=== PATIENT | female | born 1990 | race African-American/Black ===

== ENCOUNTER 2017-01-04 19:40 | Emergency (ER) | payer OTHER | END 2017-01-04 20:18 | disposition left against medical advice (07) | LOC: UCEAST 19:40 | DX: R05 Cough (principal); Z53.21 Procedure and treatment not carried out due to patient leaving prior to being seen by health care provider ==

== ENCOUNTER 2017-09-06 20:15 | Emergency (ER) | payer OTHER ==
[2017-09-06 20:24] VITALS: BP 118/71
--- NOTE | 2017-09-06 20:40 | UC ---
Throat Pain/Nasal Valentin HPI - HPI Summary HPI Summary: Pt presents with cough and ST. She tells me that the cough is nonproductive and started about a month ago. Over the last few days she has developed a ST, sinus congestion, and sinus headache. Has not been taking anything OTC. Denies fever, chills, chest pain, SOB, abdominal pain, N/V/D/C - History of Current Complaint Chief Complaint: UCRespiratory Stated Complaint: COUGH Time Seen by Provider: 09/06/17 20:37 Hx Obtained From: Patient Hx Last Menstrual Period: 1 WEEK AGO Onset/Duration: Gradual Onset Severity: Mild Cough: Nonproductive - Allergies/Home Medications Allergies/Adverse Reactions: Allergies Allergy/AdvReac Type Severity Reaction Status Date / Time Penicillins Allergy Severe Anaphylatic Verified 09/06/17 20:24 Shock Shellfish Allergy Allergy Severe Anaphylatic Verified 09/06/17 20:24 Shock Iodine Allergy Unknown Unknown Verified 09/06/17 20:24 Reaction Details Iodide Allergy Unknown Verified 09/06/17 20:24 Reaction Details PMH/Surg Hx/FS Hx/Imm Hx Previously Healthy: Yes - Surgical History Surgical History: None - Family History Known Family History: Positive: None - Social History Occupation: Employed Full-time Lives: With Family Alcohol Use: Occasionally Substance Use Type: None Smoking Status (MU): Never Smoked Tobacco Have You Smoked in the Last Year: No - Immunization History Most Recent Tetanus Shot: unknown Review of Systems Constitutional: Negative Skin: Negative Eyes: Negative ENT: Sore Throat, Nasal Discharge, Sinus Congestion, Sinus Pain/Tenderness Respiratory: Cough Cardiovascular: Negative Gastrointestinal: Negative Neurological: Headache All Other Systems Reviewed And Are Negative: Yes Physical Exam Triage Information Reviewed: Yes Appearance: Well-Appearing, Well-Nourished Vital Signs: Initial Vital Signs Temp 97.9 F 09/06/17 20:20 Pulse 94 09/06/17 20:20 Resp 18 09/06/17 20:20 BP 118/71 09/06/17 20:20 Pulse Ox 100 09/06/17 20:20 Vital Signs Reviewed: Yes Eyes: Positive: Conjunctiva Clear. Negative: Conjunctiva Inflamed, Discharge ENT: Positive: Hearing grossly normal, Pharynx normal, Nasal congestion, Nasal drainage, TMs normal, Sinus tenderness, Uvula midline. Negative: Pharyngeal erythema, TM bulging, TM dull, TM red, Tonsillar swelling, Tonsillar exudate, Muffled voice, Hoarse voice Neck: Positive: Supple, Nontender, No Lymphadenopathy Respiratory: Positive: Chest non-tender, Lungs clear, Normal breath sounds, No respiratory distress, No accessory muscle use Cardiovascular: Positive: RRR, No Murmur, Pulses Normal Neurological: Positive: Alert. Negative: Fatigued Psychological: Positive: Age Appropriate Behavior Skin: Negative: rashes Throat Pain/Nasal Course/Dx - Course Course Of Treatment: POC strep is negative. Rx for azithromycin for sinus symptoms and tessalon for cough. She tells me that she has an albuterol inhaler at home that she has not been using - I advised her to use this 1-2 puffs q6hrs prn SOB/wheezing. - Differential Dx/Diagnosis Differential Diagnosis/HQI/PQRI: Influenza, Mononucleosis, Pharyngitis, Sinusitis, Tonsillitis, URI Provider Diagnoses: Sinusitis. Bronchitis. Pharyngitis Discharge - Discharge Plan Condition: Stable Disposition: HOME Prescriptions: Azithromycin 200/5 SUSP(NF) [Zithromax 200 mg/5 ml SUSP(NF)] 400 mg PO .NOW, THEN 200MG ED #1 btl Benzonatate CAP* [Tessalon 100 MG CAP*] 100 mg PO TID PRN #30 cap PRN Reason: Cough Patient Education Materials: Sinusitis (ED), Acute Bronchitis (ED) Referrals: Glenn Mccartney MD [Primary Care Provider] - Additional Instructions: If you develop a fever, SOB, chest pain, new or worsening symptoms - please call your PCP or go to the ED.
== END 2017-09-06 21:01 | disposition home or self-care (01) ==
LOC: UCEAST 20:15
DX: J32.9 Chronic sinusitis, unspecified (principal); J40 Bronchitis, not specified as acute or chronic; J02.9 Acute pharyngitis, unspecified; Z72.89 Other problems related to lifestyle
CPT/HCPCS: 87651; 99212; G0463

== ENCOUNTER 2017-10-22 16:58 | Emergency (ER) | payer OTHER | END 2017-10-22 21:08 | disposition left against medical advice (07) | LOC: UCEAST 16:58 | DX: R09.89 Other specified symptoms and signs involving the circulatory and respiratory systems (principal); Z53.21 Procedure and treatment not carried out due to patient leaving prior to being seen by health care provider ==

== ENCOUNTER 2017-10-28 14:19 | Emergency (ER) | payer SELFPAY ==
[2017-10-28 16:14] VITALS: BP 124/94
--- NOTE | 2017-10-28 16:54 | UC ---
Respiratory Complaint HPI - History of Current Complaint Chief Complaint: UCRespiratory Stated Complaint: COUGH,HEADACHE Time Seen by Provider: 10/28/17 16:52 Hx Last Menstrual Period: Oct 01, 2017 Pain Intensity: 9 - Allergies/Home Medications Allergies/Adverse Reactions: Allergies Allergy/AdvReac Type Severity Reaction Status Date / Time MS Shellfish Allergy Allergy Severe Anaphylatic Verified 10/28/17 16:15 [Shellfish Allergy] Shock MS Iodine [Iodine] Allergy Unknown Unknown Verified 10/28/17 16:15 Reaction Details MS Iodide [Iodide] Allergy Unknown Verified 10/28/17 16:15 Reaction Details Penicillins Allergy Anaphylatic Verified 10/28/17 16:15 Shock Home Medications: Home Medications NK [No Home Medications Reported] 10/28/17 [History Confirmed 10/28/17] PMH/Surg Hx/FS Hx/Imm Hx - Surgical History Surgical History: None - Family History Known Family History: Positive: None - Social History Alcohol Use: Occasionally Substance Use Type: None Smoking Status (MU): Never Smoked Tobacco Have You Smoked in the Last Year: No - Immunization History Most Recent Tetanus Shot: unknown Physical Exam Vital Signs: Initial Vital Signs Temp 98.0 F 10/28/17 16:10 Pulse 83 10/28/17 16:10 Resp 12 10/28/17 16:10 BP 124/94 10/28/17 16:10 Pulse Ox 100 10/28/17 16:10 UC Diagnostic Evaluation - Laboratory O2 Sat by Pulse Oximetry: 100 Discharge - Discharge Plan Referrals: Glenn Mccartney MD [Primary Care Provider] -
== END 2017-10-28 18:27 | disposition home or self-care (01) ==
LOC: UCEAST 14:19
DX: R05 Cough (principal); R51 Headache
CPT/HCPCS: 86615; 87502; 87798; 99212; G0463

== ENCOUNTER 2017-11-14 15:08 | Emergency (ER) | payer SELFPAY ==
[2017-11-14] MEDS ORDERED: Albuterol/Ipratropium NEB.SOL* Albuterol 2.5 MG/Ipratropium 0.5 MG 3 ML INH ONE (15:50)
[2017-11-14 15:58] VITALS: BP 121/84
--- NOTE | 2017-11-14 16:19 | RAD ---
HISTORY: Bilateral neck pain COMPARISONS: None TECHNIQUE: Multiple contiguous axial CT scans were obtained of the neck without intravenous contrast, with coronal and sagittal multiplanar reformations. FINDINGS: The study is limited by the lack of intravenous contrast. This limits evaluation of the solid organs and vasculature. BRAIN AND ORBITS: The visualized brain and orbits are normal. PARANASAL SINUSES: The visualized paranasal sinuses are clear. SALIVARY GLANDS: The parotid glands, submandibular glands, sublingual glands are normal. NASAL CAVITY/NASOPHARYNX: The nasal cavity and nasopharynx are normal. ORAL CAVITY/OROPHARYNX: The oral cavity is obscured by streak artifact from dental amalgam. The visualized oral cavity and oropharynx are unremarkable. LARYNGEAL APPARATUS/HYPOPHARYNX: The laryngeal apparatus and hypopharynx are normal. UPPER AIRWAY/UPPER ESOPHAGUS: The visualized upper airway and esophagus are normal. LUNG APICES: The lung apices are clear. THYROID GLAND: The thyroid gland is normal. LYMPH NODES: There is no lymphadenopathy by size criteria. VASCULATURE: The vasculature is unremarkable. BONES AND SOFT TISSUES: There is straightening of the cervical lordosis. OTHER: None. IMPRESSION: UNREMARKABLE NONCONTRAST CT OF THE NECK. NO ACUTE PATHOLOGY.
--- NOTE | 2017-11-14 17:03 | RAD ---
Indication: Cough, shortness of breath. 2 views of the chest including dual energy PA views demonstrates no mediastinal shift. Heart is of normal size and configuration. Lung shahid appear clear. IMPRESSION: No active cardiopulmonary disease is noted.
--- NOTE | 2017-11-14 19:01 | UC ---
Arslan Madrigal Nilda, scribed for Gilberto Mcgowan MD on 11/14/17 at 1557 . Respiratory Complaint HPI - HPI Summary HPI Summary: This patient is a 27 year old F presenting to [facility] with a chief complaint of severe constant nonproductive cough for the past 4 months. Pt states, "It feels like someone is stepping on my chest." Symptoms aggravated and alleviated by nothing including inhaler. Patient reports anterior neck pain secondary to coughing, SOB, rhinorrhea, wheezing, and vomiting. She denies post nasal drip, edema, bilat calf pain, and foreign body sensation in throat. She notes she has been seen multiple times at the hospital and clinics with no resolution. PMHx includes asthma. No PMHx GERD and blood clots. - History of Current Complaint Stated Complaint: URI Time Seen by Provider: 11/14/17 15:39 Hx Obtained From: Patient Hx Last Menstrual Period: Oct 01, 2017 Onset/Duration: Sudden Onset, Lasting Weeks, Still Present Timing: Constant Severity Currently: Severe Pain Scale Used: 0-10 Numeric Character: Cough: Nonproductive Aggravating Factors: Nothing Alleviating Factors: Nothing Associated Signs And Symptoms: Positive: Dyspnea, Wheezing. Negative: Calf Pain , Calf Swelling - Allergies/Home Medications Allergies/Adverse Reactions: Allergies Allergy/AdvReac Type Severity Reaction Status Date / Time iodine Allergy Unknown Verified 11/14/17 16:00 Reaction Details Penicillins Allergy Unknown Verified 11/14/17 16:00 Reaction Details shellfish derived Allergy Hives/Diff. Verified 11/14/17 16:00 Breathing/I tching Home Medications: Home Medications Acyclovir 200 mg PO 11/14/17 [History] PMH/Surg Hx/FS Hx/Imm Hx Cardiovascular History: Other Other Cardiovascular History: Negative blood clots Respiratory History: Asthma GI/ History: Other Other GI/ History: Negative GERD - Surgical History Surgical History: None - Family History Known Family History: Positive: Diabetes - grandmother, Other - Cancer ( gradmother) - Social History Occupation: Employed Full-time Alcohol Use: Occasionally Substance Use Type: None Smoking Status (MU): Never Smoked Tobacco Have You Smoked in the Last Year: No - Immunization History Most Recent Tetanus Shot: unknown Review of Systems ENT: Nasal Discharge, Other - negative post nasal drip, foreign body sensation in throat Respiratory: Shortness Of Breath, Cough, Other - wheezing Gastrointestinal: Vomiting Musculoskeletal: Other: - neck pain secondary to cough; negative edema, bilat calf pain All Other Systems Reviewed And Are Negative: Yes Physical Exam - Summary Physical Exam Summary: General: well-appearing, no pain distress Skin: warm, color reflects adequate perfusion, dry Head: normal Eyes: EOMI, SYLVIA ENT: normal Neck: supple, nontender Respiratory: CTA, breath sounds present, Dry cough Cardiovascular: RRR Abdomen: soft, nontender Bowel: present Musculoskeletal: normal, strength/ROM intact Neurological: normal, sensory/motor intact, A&O x3 Psychological: affect/mood appropriate Triage Information Reviewed: Yes Vital Signs: Initial Vital Signs Temp 98.2 F 11/14/17 15:50 Pulse 77 11/14/17 15:50 Resp 16 11/14/17 15:50 BP 121/84 11/14/17 15:50 Pulse Ox 100 11/14/17 15:50 Vital Signs Reviewed: Yes UC Diagnostic Evaluation - Radiology Radiology Interpretation Completed By: Radiologist - CXR, per radiologist, reveals no active cardiopulmonary disease is noted. Dr. Mcgowan has reviewed this report. - CT CT Interpretation Completed By: Radiologist - Neck CT, per radiologist, reveals unremarkable noncontrast CT of the neck. No acute pathology. Dr. Mcgowan has reviewed this radiology report. Re-Evaluation - Re-Evaluation First Eval Re-Evaluation Time: 17:08 Comment: Pt feels slightly better after DuoNeb. Reviewed imaging w/ pt. Respiratory Course/Dx - Course Course Of Treatment: CXR, per radiologist, reveals no active cardiopulmonary disease is noted. Dr. Mcgowan has reviewed this report. Neck CT, per radiologist, reveals unremarkable noncontrast CT of the neck. No acute pathology. Dr. Mcgowan has reviewed this radiology report. BP noted and advised to follow up with PCP. Allergies noted. Medications reviewed. DISCUSSED RESULTS WITH PATIENT. POSSIBLE CAUSE OF THE CHRONIC DYSPNEA AND COUGH MAY BE GERD SO, WILL RX OMEPRAZOLE/ZPAC/PREDNISONE/CONTINUE ALBUTEROL/ FOLLOW UP PMD; RETURN IF WORSE. - Differential Dx/Diagnosis Provider Diagnoses: DYSPNEA. COUGH. GERD. Elevated BP without Dx of HTN. Discharge - Discharge Plan Condition: Stable Disposition: HOME Prescriptions: Azithromycin 200/5 SUSP(NF) [Zithromax 200 mg/5 ml SUSP(NF)] 200 mg PO SEE INSTRUCTIONS #37.5 ml Omeprazole CAP* [Prilosec CAP* 20 MG] 20 mg PO BID #30 cap. PrednisoLONE LIQ 3 MG/ML UDC* [PrednisoLONE LIQ 3 MG/ML 5 ml UDC*] 45 mg PO DAILY #75 ml Patient Education Materials: Gastroesophageal Reflux Disease (ED), Chronic Cough (ED), Dyspnea (ED) Referrals: Glenn Mccartney MD [Primary Care Provider] - Additional Instructions: FOLLOW UP WITH YOUR DOCTOR. TAKE OMEPRAZOLE 20MG TWICE A DAY FOR POSSIBLE GERD. GET RECHECKED FOR ANY WORSENING OF YOUR CONDITION OR QUESTIONS OR CONCERNS. YOUR BLOOD PRESSURE WAS ELEVATED TODAY; FOLLOW UP WITH YOUR PRIMARY CARE DOCTOR WITHIN ONE WEEK. The documentation as recorded by the Arslan duncan Nilda accurately reflects the service I personally performed and the decisions made by me, Gilberto Mcgowan MD.
== END 2017-11-14 17:23 | disposition home or self-care (01) ==
LOC: UCEAST 15:08
DX: R05 Cough (principal); R06.00 Dyspnea, unspecified; K21.9 Gastro-esophageal reflux disease without esophagitis
CPT/HCPCS: 70490; 71046; 99212; A9270-GY; G0463

== ENCOUNTER 2018-06-04 12:54 | Emergency (ER) | payer SELFPAY ==
--- NOTE | 2018-06-05 10:40 | UC ---
Discharge - Sign-Out/Discharge Documenting (check all that apply): Post-Discharge Follow Up All imaging exams completed and their final reports reviewed: No Studies - Discharge Plan Condition: Stable Disposition: LEFT WITHOUT BEING SEEN Referrals: Glenn Mccartney MD [Primary Care Provider] - - Billing Disposition and Condition Condition: STABLE Disposition: Left Without Being Seen
== END 2018-06-04 13:39 | disposition left against medical advice (07) ==
LOC: UCEAST 12:54
DX: F41.9 Anxiety disorder, unspecified (principal); Z53.21 Procedure and treatment not carried out due to patient leaving prior to being seen by health care provider

== ENCOUNTER 2019-11-29 14:00 | Emergency (ER) | payer OTHER ==
--- OUTSIDE RECORDS SUMMARY | 2019-11-29 14:12 | XMS REPORT | Continuity of Care Document ---
:1990 External Reference #:[id number] Author Name Allergy Injection (transmitted by agent of provider Janine Epperson) Address [address] [place] [address] Care Team Providers Name Role Phone Libby Navarrete M.D. - Family Care Team Information Management And Budget Analyst [phone] Medicine Gelnn Mccartney MD Care Team Information Management And Budget Analyst [phone] Problems Active Problems Provider Date Allergic rhinitis due to pollen Zay Mendez M.D. Onset: 07/22/2017 Allergic rhinitis Zay Mendez M.D. Onset: 07/22/2017 Allergic rhinitis due to animals Zay Mendez M.D. Onset: 07/22/2017 Allergic rhinitis Zay Mendez M.D. Onset: 07/22/2017 Mild intermittent asthma Zay Mendez M.D. Onset: 07/22/2017 Allergy to other foods HZAEL Arias-C Onset: 07/22/2017 Social History Type Date Description Comments Sex Unknown ETOH Use Occasionally consumes alcohol Tobacco Use Start: Unknown Patient has never smoked Recreational Drug Use Never Used Drugs Allergies, Adverse Reactions, Alerts Active Allergies Reaction Severity Comments Date Penicillin Unknown Event 09/18/2015 Iodine Unknown Event 09/18/2015 Shellfish Anaphylaxis 01/24/2017 Medications Active Medications SIG Qnty Indications Ordering Date Provider Albuterol Sulfate 2 puffs every 8.500gm Laney Oropeza, 10/31/2019 HFA 4hours as needed [employer] 108(90Base) for cough, mcg/Act Aerosol shortness of breath, chest tightness or wheezing. Symbicort 2 inhalations am&pm 30.6gm Laney Oropeza, 10/31/2019 [employer] 160-4.5mcg/Act Aerosol Cetirizine HCL 1 by mouth every 30tabs J45.20 Laney Oropeza, 10/31/2019 10mg day [employer] Tablets Qnasl 1-2 sprays in each 26.1gm Laney Oropeza, 06/06/2017 80mcg/Act nostril daily [employer] Aerosol Epipen 2-Pacheco use as directed 12pak Laney Oropeza, 09/18/2015 [employer]ELOPER[employer] 0.3mg/0.3ML Solution Auto-Inject Acyclovir one tab daily Unknown 500mg Tablets Benzonatate Unknown 200mg Capsules Medications Administered in Office Medication SIG Qnty Indications Ordering Provider Date Injection Allergy Injection 11/14/2019 Injection Injection Allergy Injection 08/15/2017 Injection Injection Allergy Injection 07/04/2017 Injection Injection Allergy Injection 06/13/2017 Injection Injection Allergy Injection 06/06/2017 Injection Injection Zay Mendez M.D. 04/15/2017 Injection Injection Allergy Injection 04/15/2017 Injection Injection Zay Mendez M.D. 03/28/2017 Injection Injection Allergy Injection 03/28/2017 Injection Injection Allergy Injection 03/21/2017 Injection Injection Allergy Injection 03/17/2017 Injection Injection Allergy Injection 03/07/2017 Injection Injection Allergy Injection 02/28/2017 Injection Injection Allergy Injection 02/14/2017 Injection Celestone/Cortisone Laney Oropeza, [employer] 01/05/2017 [id number] 1 cc Injection Immunizations CPT Code Status Date Vaccine Lot # [id number] Given Unknown Influenza Vaccine Vital Signs Date Vital Result Comment 11/14/2019 10:00am Height 63.5 inches 5'3.50" Weight 200.00 lb Weight 90.720 kg Respiratory Rate 20 /min Heart Rate 91 /min O2 % BldC Oximetry 99 % BP Systolic 120 mmHg BP Diastolic 62 mmHg Asthma Control Test 18 BMI (Body Mass Index) 34.9 kg/m2 10/31/2019 1:49pm Height 63.5 inches 5'3.50" Weight 200.00 lb Weight 90.720 kg Respiratory Rate 20 /min Heart Rate 78 /min O2 % BldC Oximetry 99 % BP Systolic 113 mmHg BP Diastolic 83 mmHg Asthma Control Test 12 Fractional Exhaled Nitric Oxide 33 BMI (Body Mass Index) 34.9 kg/m2 Results Description No Information Available Procedures Date Code Description Status 11/14/2019 31792 Injection Completed 11/14/2019 63970 Pre PFT Completed 11/13/2019 61079 Extract 1-10 Completed 10/31/2019 54596 Nitric Oxide Gas Determination Completed 10/31/2019 87972 Ippb Completed 10/31/2019 12816 Pre PFT Completed Medical Devices Description No Information Available Encounters Type Date Location Provider Dx Diagnosis Office Visit 11/14/2019 Reynold Oropeza, J30.2 Other seasonal 9:40a [employer] allergic rhinitis J30.1 Allergic rhinitis due to pollen J30.89 Other allergic rhinitis J30.81 Allergic rhinitis due to animal (cat) (dog) hair and dander J45.20 Mild intermittent asthma, uncomplicated Office Visit 10/31/2019 1:40p Reynold Oropeza, J45.20 Mild intermittent [employer] asthma, uncomplicated J30.89 Other allergic rhinitis J30.2 Other seasonal allergic rhinitis J30.1 Allergic rhinitis due to pollen Assessments Date Code Description Provider 11/14/2019 J30.1 Allergic rhinitis due to pollen Zay Mendez M.D. 11/14/2019 J30.2 Other seasonal allergic rhinitis Zay Mendez M.D. 11/14/2019 J30.2 Other seasonal allergic rhinitis Zay Mendez M.D. 11/14/2019 J30.2 Other seasonal allergic rhinitis Laney Sandip, [employer] 11/14/2019 J30.81 Allergic rhinitis due to animal (cat) Zay Mendez M.D. (dog) hair and dander 11/14/2019 J30.1 Allergic rhinitis due to pollen Zay Mendez M.D. 11/14/2019 J30.89 Other allergic rhinitis Zay Mendez M.D. 11/14/2019 J30.1 Allergic rhinitis due to pollen Laneymallika Oropeza, [employer]EL[employer]C 11/14/2019 J30.89 Other allergic rhinitis Zay Mendez M.D. 11/14/2019 J30.89 Other allergic rhinitis Laney Uldrramonita, [employer]ELOPER[employer] 11/14/2019 J30.81 Allergic rhinitis due to animal (cat) Zay Mendez M.D. (dog) hair and dander 11/14/2019 J30.81 Allergic rhinitis due to animal (cat) Laney Uldrich, [employer]ELOPER -C (dog) hair and dander 11/14/2019 J45.20 Mild intermittent asthma, uncomplicated Laney Uldrich, [employer]ICAL DEVELOPER-C 11/14/2019 J30.1 Allergic rhinitis due to pollen Allergy Injection 11/14/2019 J30.2 Other seasonal allergic rhinitis Allergy Injection 11/14/2019 J30.81 Allergic rhinitis due to animal (cat) Allergy Injection (dog) hair and dander 11/14/2019 J30.89 Other allergic rhinitis Allergy Injection 11/13/2019 J30.2 Other seasonal allergic rhinitis Zay Mendez M.D. 11/13/2019 J30.2 Other seasonal allergic rhinitis Lab 11/13/2019 J30.1 Allergic rhinitis due to pollen Zay Mendez M.D. 11/13/2019 J30.1 Allergic rhinitis due to pollen Lab 11/13/2019 J30.89 Other allergic rhinitis Zay Mendez M.D. 11/13/2019 J30.89 Other allergic rhinitis Lab 11/13/2019 J30.81 Allergic rhinitis due to animal (cat) Zay Mendez M.D. (dog) hair and dander 11/13/2019 J30.81 Allergic rhinitis due to animal (cat) Lab (dog) hair and dander 10/31/2019 J45.20 Mild intermittent asthma, uncomplicated Zay Mendez M.D. 10/31/2019 J45.20 Mild intermittent asthma, uncomplicated Laney Sandip, [employer] 10/31/2019 J30.89 Other allergic rhinitis Zay Mendez M.D. 10/31/2019 J30.89 Other allergic rhinitis Laney Sandip, [employer] DEVELOPER-C 10/31/2019 J30.2 Other seasonal allergic rhinitis Zay Mendez M.D. 10/31/2019 J30.2 Other seasonal allergic rhinitis Laney Uldrramonita, [employer] DEVELOPER-C 10/31/2019 J30.1 Allergic rhinitis due to pollen Zay Mendez M.D. 10/31/2019 J30.1 Allergic rhinitis due to pollen CORRINE Arias Plan of Treatment Future Appointment(s):11/19/2019 5:30 pm - Allergy Injection at [id number] 5:20 pm - Mitchell Duarte M.D. at [id number]/14/2019 - HAZEL Arias- CJ30.2 Other seasonal allergic pitndhrtL70.1 Allergic rhinitis due to rirrtfS65.89 Other allergic creftvgzF62.81 Allergic rhinitis due to animal (cat ) (dog) hair and jfizytC41.20 Mild intermittent asthma, uncomplicatedRecommendations:Continue all medications as prescribed.Refrain from wearing perfumes/scented colognes while visitingour office. Continue the Symbicort 2 puffs twice a day (Maintenance use every day) Cetirizine 1daily Qnasl 1-2 sprays each nostril once a day Proair 2 puffs every 4 hours as needed for cough, shortness of breath, chest congestion or wheezing.Monitor Albuterol use. If using more than 2x/week, please call the office as your asthma medications may need to be adjusted. PFT done today. PulmonaryFunction Studies are done by exhaling (blowing) into a machine to detect an asthmatic condition or other lung problem. Results reviewed with the patient and is normal Functional Status Description No Information Available Mental Status Description No Information Available Referrals Description No Information Available
--- OUTSIDE RECORDS SUMMARY | 2019-11-29 14:12 | XMS REPORT | Continuity of Care Document ---
:1990 External Reference #:[id number] Author Name Allergy Injection (transmitted by agent of provider Rachel Johnson) Address [address] [place] [address] Care Team Providers Name Role Phone Libby Navarrete M.D. - Family Care Team Information Food And Beverage Server [phone] Medicine Glenn Mccartney MD Care Team Information Food And Beverage Server [phone] Problems Active Problems Provider Date Allergic rhinitis due to pollen Zay Mendez M.D. Onset: 07/22/2017 Allergic rhinitis Zay Mendez M.D. Onset: 07/22/2017 Allergic rhinitis due to animals Zay Mendez M.D. Onset: 07/22/2017 Allergic rhinitis Zay Mendez M.D. Onset: 07/22/2017 Mild intermittent asthma Zay Mendez M.D. Onset: 07/22/2017 Allergy to other foods HAZEL Arias-C Onset: 07/22/2017 Social History Type Date [...] Laney Oropeza, 10/31/2019 HFA 4hours as needed MDM SR-C 108(90Base) for cough, mcg/Act Aerosol shortness of breath, chest tightness or wheezing. Symbicort 2 inhalations am&pm 30.6gm Laney Oropeza, 10/31/2019 MDM SR-C 160-4.5mcg/Act Aerosol Cetirizine HCL 1 by mouth every 30tabs J45.20 Laney Oropeza, 10/31/2019 10mg day MDM SR-C Tablets Qnasl 1-2 sprays in each 26.1gm Laney Oropeza, 06/06/2017 80mcg/Act nostril daily MDM SR-C Aerosol Epipen 2-Pacheco use as directed 12pak Laneynegrito Marinoramonita, 09/18/2015 MDM SR-C 0.3mg/0.3ML Solution Auto-Inject Acyclovir one tab daily Unknown 500mg Tablets Benzonatate Unknown 200mg Capsules Medications Administered in Office Medication SIG Qnty Indications Ordering Provider Date Injection Allergy Injection 11/19/2019 Injection Injection Allergy Injection 11/14/2019 Injection Injection Allergy [...] Injection Injection Allergy Injection 02/14/2017 Injection Celestone/Cortisone Laneynegrito Oropeza, MDM SR-C 01/05/2017 [id number] 1 cc Injection Immunizations CPT Code Status Date Vaccine Lot # [id number] Given Unknown Influenza Vaccine Vital Signs Date [...] Information Available Procedures Date Code Description Status 11/19/2019 95815 Injection Completed 11/14/2019 05629 Injection Completed 11/14/2019 35652 Pre PFT Completed 11/13/2019 26828 Extract 1-10 Completed 10/31/2019 63199 Nitric Oxide Gas Determination Completed 10/31/2019 89371 Ippb Completed 10/31/2019 37042 Pre PFT Completed Medical Devices Description No Information Available Encounters Type Date Location Provider Dx Diagnosis Office Visit 11/14/2019 Reynold Oropeza J30.2 Other seasonal 9:40a MDM SR-C allergic rhinitis J30.1 Allergic rhinitis due to pollen J30.89 Other allergic rhinitis J30.81 Allergic rhinitis due to animal (cat) (dog) hair and dander J45.20 Mild intermittent asthma, uncomplicated Office Visit 10/31/2019 1:40p Reynold Oropeza J45.20 Mild intermittent MDM SR-C asthma, uncomplicated J30.89 Other allergic rhinitis J30.2 Other seasonal allergic rhinitis J30.1 Allergic rhinitis due to pollen Assessments Date Code Description Provider 11/19/2019 J30.1 Allergic rhinitis due to pollen Zay Mendez M.D. 11/19/2019 J30.1 Allergic rhinitis due to pollen Allergy Injection 11/19/2019 J30.2 Other seasonal allergic rhinitis Zay Mendez M.D. 11/19/2019 J30.2 Other seasonal allergic rhinitis Allergy Injection 11/19/2019 J30.81 Allergic rhinitis due to animal (cat) Zay Mendez M.D. (dog) hair and dander 11/19/2019 J30.81 Allergic rhinitis due to animal (cat) Allergy Injection (dog) hair and dander 11/19/2019 J30.89 Other allergic rhinitis Zay Mendez M.D. 11/19/2019 J30.89 Other allergic rhinitis Allergy Injection 11/14/2019 J30.1 Allergic rhinitis due to pollen Zay Mendez M.D. 11/14/2019 J30.2 Other seasonal allergic rhinitis Zay Mendez M.D. 11/14/2019 J30.2 Other seasonal allergic rhinitis Zay Mendez M.D. 11/14/2019 J30.2 Other seasonal allergic rhinitis HAZEL Arias-C 11/14/2019 J30.81 Allergic rhinitis due to animal (cat) Zay Mendez M.D. (dog) hair and dander 11/14/2019 J30.1 Allergic rhinitis due to pollen Zay Mendez M.D. 11/14/2019 J30.89 Other allergic rhinitis Zay Mendez M.D. 11/14/2019 J30.1 Allergic rhinitis due to pollen ENEDINA AriasP-C 11/14/2019 J30.89 Other allergic rhinitis Zay Mendez M.D. 11/14/2019 J30.89 Other allergic rhinitis HAZEL Arias-C 11/14/2019 J30.81 Allergic rhinitis due to animal (cat) Zay Mendez M.D. (dog) hair and dander 11/14/2019 J30.81 Allergic rhinitis due to animal (cat) HAZEL Arias -C (dog) hair and dander 11/14/2019 J45.20 Mild intermittent asthma, uncomplicated Laney Oropeza, MDM SR-C 11/14/2019 J30.1 Allergic rhinitis due to pollen [...] M.D. 10/31/2019 J45.20 Mild intermittent asthma, uncomplicated HAZEL Arias-Janine 10/31/2019 J30.89 Other allergic rhinitis Zay Mendez M.D. 10/31/2019 J30.89 Other allergic rhinitis HAZEL Arias-Janine 10/31/2019 J30.2 Other seasonal allergic rhinitis Zay Mendez M.D. 10/31/2019 J30.2 Other seasonal allergic rhinitis CORRINE Arias 10/31/2019 J30.1 Allergic rhinitis due to pollen Zay Mendez M.D. 10/31/2019 J30.1 Allergic rhinitis due to pollen HAZEL Arias-Janine Plan of Treatment Future Appointment(s):11/26/2019 5:30 pm - Allergy Injection at [id number] 5:20 pm - Mitchell Duarte M.D. at [place] Functional Status Description No Information Available Mental Status Description No Information Available Referrals Description No Information Available
--- OUTSIDE RECORDS SUMMARY | 2019-11-29 14:12 | XMS REPORT | Continuity of Care Document ---
:1990 External Reference #:[id number] Author Name CORRINE Arias (transmitted by agent of provider Bambi Galindo) Address [address] [place] [address] Care Team Providers Name Role Phone Libby Navarrete M.D. - Family Care Team Information Instructor Decorating [phone] Medicine Glenn Mccartney MD Care Team Information Instructor Decorating [phone] Problems Active Problems Provider Date Allergic rhinitis due to pollen Zay Mendez M.D. Onset: 07/22/2017 Allergic rhinitis Zay Mendez M.D. Onset: 07/22/2017 Allergic rhinitis due to animals Zay Mendez M.D. Onset: 07/22/2017 Allergic rhinitis Zay Mendez M.D. Onset: 07/22/2017 Mild intermittent asthma Zay Mendez M.D. Onset: 07/22/2017 Allergy to other foods CORRINE Arias Onset: 07/22/2017 Social History Type Date Description [...] Laney Oropeza, 10/31/2019 HFA 4hours as needed CORPORATE ETHICS OFFICER-C 108(90Base) for cough, mcg/Act Aerosol shortness of breath, chest tightness or wheezing. Symbicort 2 inhalations am&pm 30.6gm Laney Oropeza, 10/31/2019 CORPORATE ETHICS OFFICER-C 160-4.5mcg/Act Aerosol Cetirizine HCL 1 by mouth every 30tabs J45.20 Laney Oropeza, 10/31/2019 10mg day CORPORATE ETHICS OFFICER-C Tablets Qnasl 1-2 sprays in each 26.1gm Laney Oropeza, 06/06/2017 80mcg/Act nostril daily CORPORATE ETHICS OFFICER-C Aerosol Epipen 2-Pacheco use as directed 12pak Laney Oropeza, 09/18/2015 CORPORATE ETHICS OFFICER-C 0.3mg/0.3ML Solution Auto-Inject Acyclovir one tab daily Unknown 500mg Tablets Benzonatate Unknown 200mg Capsules Medications Administered in Office Medication SIG Qnty Indications Ordering Provider Date Injection Allergy Injection 08/15/2017 Injection Injection Allergy [...] Allergy Injection 02/14/2017 Injection Celestone/Cortisone Laney Oropeza, CORPORATE ETHICS OFFICER-C 01/05/2017 [id number] 1 cc Injection Immunizations CPT Code Status Date Vaccine Lot # [id number] Given Unknown Influenza Vaccine Vital Signs Date [...] Available Procedures Date Code Description Status 11/14/2019 61288 Pre PFT Completed 11/13/2019 25812 Extract 1-10 Completed 10/31/2019 96838 Nitric Oxide Gas Determination Completed 10/31/2019 98197 Ippb Completed 10/31/2019 34057 Pre PFT Completed Medical Devices Description No Information Available Encounters Type Date Location Provider Dx Diagnosis Office Visit 10/31/[address] [place] [address] Oropeza, J45.20 Mild intermittent 1:40p CORPORATE ETHICS OFFICER-C asthma, uncomplicated J30.89 Other allergic rhinitis J30.2 Other seasonal allergic rhinitis J30.1 Allergic rhinitis due to pollen Assessments Date Code Description Provider 11/14/2019 J30.2 Other seasonal allergic rhinitis Laney Uldrich, CORPORATE ETHICS OFFICER-C 11/14/2019 J30.1 Allergic rhinitis due to pollen Laney Uldrich, CORPORATE ETHICS OFFICER-C 11/14/2019 J30.89 Other allergic rhinitis Laney Uldrich, CORPORATE ETHICS OFFICER-C 11/14/2019 J30.81 Allergic rhinitis due to animal (cat) Laney Uldrich, CORPORATE ETHICS OFFICER -C (dog) hair and dander 11/14/2019 J45.20 Mild intermittent asthma, uncomplicated Laney Uldrich, CORPORATE ETHICS OFFICER-C 11/13/2019 J30.2 Other seasonal allergic rhinitis Zay [...] M.D. 10/31/2019 J45.20 Mild intermittent asthma, uncomplicated CORRINE Arias 10/31/2019 J30.89 Other allergic rhinitis Zay Mendez M.D. 10/31/2019 J30.89 Other allergic rhinitis CORRINE Arias 10/31/2019 J30.2 Other seasonal allergic rhinitis Zay Mendez M.D. 10/31/2019 J30.2 Other seasonal allergic rhinitis CORRINE Arias 10/31/2019 J30.1 Allergic rhinitis due to pollen Zay Mendez M.D. 10/31/2019 J30.1 Allergic rhinitis due to pollen CORRINE Arias Plan of Treatment Future Appointment(s):03/17/2020 5:20 pm - Mitchell Duarte M.D. at [id number] - [place] AriasCJ30.2 Other seasonal allergic axkbjtraU88.1 Allergic rhinitis due to wfdraeU97.89 Other allergic ofsuzrdxV23.81 Allergic rhinitis due to animal (cat) (dog) hair and tjccwlP97.20 Mild intermittent asthma, uncomplicatedRecommendations:Continue all medications as prescribed.Refrain from wearing perfumes/scented colognes while visitingour office. IPPB Start the Symbicort 2 puffs twice a day (Maintenance use every day) Cetirizine1 daily Qnasl 1-2 sprays each nostril once a day Proair 2 puffs every 4 hours as needed for cough,shortness of breath, chest congestion or wheezing.Monitor Albuterol use. If using more than 2x/week,please call the office as your asthma medications may need to be adjusted. PFT done today. Pulmonary Function Studies are done by exhaling (blowing) into a machine to detect an asthmatic condition orother lung problem. Results reviewed with the patient and is normal Your JENA is 33. The normal isless than 25. You have some inflammation in your lungs. Using the Symbicort will help that. Functional Status Description No Information Available Mental Status Description No Information Available Referrals Description No Information Available
--- OUTSIDE RECORDS SUMMARY | 2019-11-29 14:12 | XMS REPORT | Continuity of Care Document ---
:1988 External Reference #:[id number] Author Name Trish Tomlinson MD (transmitted by agent of provider Riri Perez) Address [address] [place] [address] Care Team Providers Name Role Phone HCP given Care Team Information Emissions Engineer Unavailable Problems Description No Information Available Social History Type Date Description Comments Sex Unknown Tobacco Use Start: Unknown Never Smoked Cigarettes ETOH Use Occassional Alcohol Tobacco Use Start: Unknown Non Smoker Recreational Drug Use Denies Drug Use Exercise Type/Frequency Exercises regularly Allergies, Adverse Reactions, Alerts Active Allergies Reaction Severity Comments Date Penicillin as a child 04/09/2015 radiology dye(ct sca needs premedication 04/09/2015 Shellfish-derived Products lips swelling 04/09/2015 Medications Active Medications SIG Qnty Indications Ordering Provider Date Control Pill To regulate menses Unknown 11/15/2019 Symbicort Inhale 2 Puffs In Unknown 10/31/2019 The Morning And In 160-4.5mcg/Act The Evening Aerosol Proair HFA Inhale Two Puffs By Unknown 10/31/2019 108(90Base) Mouth Every 4 Hours mcg/Act Aerosol as Needed For Cough. Shortness Of Breath Chest Tightness Or Wheezing Benzonatate Take One Capsule By Unknown 10/25/2019 200mg Mouth Every 8 Hours Capsules as Needed For Cough Nexplanon per PP V25.8 Unknown 04/12/2013 68mg Implant Acyclovir 1 tab qd 054.9 Unknown 03/19/2005 400mg Tablets Immunizations CPT Code Status Date Vaccine Lot # [id number] Given 11/16/2019 Td Immunization [id number] Given 04/09/2015 Adacel or Boostrix, TDaP [id number] Vital Signs Date Vital Result Comment 11/16/2019 9:50am BP Systolic 118 mmHg BP Diastolic 70 mmHg Height 62 inches 5'2" Weight 206.00 lb BMI (Body Mass Index) 37.7 kg/m2 04/28/2015 9:09am BP Systolic 118 mmHg BP Diastolic 82 mmHg Weight 190.00 lb with sneakers Results Description No Information Available Procedures Description No Information Available Medical Devices Description No Information Available Encounters Type Date Location Provider Dx Diagnosis Office Visit 11/16/2019 Main Office Trish Tomlinson MD Z00.00 Encntr for general 9:45a adult medical exam w/o abnormal findings F43.23 Adjustment disorder with mixed anxiety and depressed mood B02.9 Zoster without complications Z23 Encounter for immunization Z41.8 Encntr for oth proc for purpose oth than [facility] E66.9 Obesity, unspecified Z68.37 Body mass index (BMI) 37.0-37.9, adult Assessments Date Code Description Provider 11/16/2019 Z00.00 Encounter for general adult medical examination Trish Tomlinson MD without abnormal findings 11/16/2019 F43.23 Adjustment disorder with mixed anxiety and Trish Tomlinson MD depressed mood 11/16/2019 B02.9 Zoster without complications Trish Tomlinson MD 11/16/2019 Z23 Encounter for immunization Trish Tomlinson MD 11/16/2019 Z41.8 Encounter for other procedures for purposes Trish Tomlinson MD other than [facility] 11/16/2019 E66.9 Obesity, unspecified Trish Tomlinson MD 11/16/2019 Z68.37 Body mass index (BMI) 37.0-37.9, adult Trish Tomlinson MD Plan of Treatment 11/16/2019 - Trish Tomlinson MDZ00.00 Encounter for general adult medical examination without abnormal findingsComments:Is due for repeat pap around April of this year. No h/o abnormal pap tests. [facility].Follow up:f/u as needed for papF43.23 Adjustment disorder with mixed anxiety and depressed moodComments:Doing well without medication, her dog gives her emotional support and helps her cope. Letter written.B02.9 Zoster without complicationsComments: Will continue acyclovir prophylaxis. Improving at this time.Z23 Encounter for avsqihwyyeqlS10.8 Encounter for other procedures for purposes other than remedying health myqpjF40.9 Obesity, shzjihgmongN66.37 Body mass index (BMI) 37.0-37.9, adult Functional Status Description No Information Available Mental Status Description No Information Available Referrals Description No Information Available
--- OUTSIDE RECORDS SUMMARY | 2019-11-29 14:12 | XMS REPORT | Continuity of Care Document ---
:1988 External Reference #:[id number] Author Name CORRINE Arias Address [address] [place] [address] Care Team Providers Name Role Phone Libby Navarrete M.D. - Family Care Team Information Construction Quality Control Manager Medicine Glenn Mccartney MD Care Team Information Construction Quality Control Manager [phone] Problems Active Problems Provider Date Allergic rhinitis [...] Laney Oropeza, 10/31/2019 HFA 4hours as needed CANDLE WRAPPER-C 108(90Base) for cough, mcg/Act Aerosol shortness of breath, chest tightness or wheezing. Symbicort 2 inhalations am&pm 30.6gm Laney Oropeza, 10/31/2019 CANDLE WRAPPER-C 160-4.5mcg/Act Aerosol Cetirizine HCL 1 by mouth every 30tabs J45.20 Laney Oropeza, 10/31/2019 10mg day CANDLE WRAPPER-C Tablets Qnasl 1-2 sprays in each 26.1gm Laney Oropeza, 06/06/2017 80mcg/Act nostril daily CANDLE WRAPPER-C Aerosol Epipen 2-Pacheco use as directed 12pak Laney Oropeza, 09/18/2015 CANDLE WRAPPER-C 0.3mg/0.3ML Solution Auto-Inject Acyclovir one tab daily [...] Allergy Injection 02/14/2017 Injection Celestone/Cortisone Laney Oropeza, CANDLE WRAPPER-C 01/05/2017 [id number] 1 cc Injection Immunizations CPT Code Status Date Vaccine Lot # [id number] Given Unknown Influenza Vaccine Vital Signs Date Vital Result Comment 10/31/2019 1:49pm Height 63.5 inches 5'3.50" Weight 200.00 lb Weight 90.720 kg Respiratory Rate 20 /min Heart Rate 78 /min O2 % BldC Oximetry 99 % BP Systolic 113 mmHg BP Diastolic 83 mmHg Asthma Control Test 12 Fractional Exhaled Nitric Oxide 33 BMI (Body Mass Index) 34.9 kg/m2 10/17/2017 4:57pm Height 63.5 inches 5'3.50" Weight 200.00 lb Pt stated Weight 90.720 kg Respiratory Rate 18 /min Heart Rate 71 /min O2 % BldC Oximetry 96 % BP Systolic 123 mmHg BP Diastolic 83 mmHg Asthma Control Test 10 BMI (Body Mass Index) 34.9 kg/m2 Results Description No Information Available Procedures Date Code Description Status 10/31/2019 50410 Nitric Oxide Gas Determination Completed 10/31/2019 49954 Ippb Completed 10/31/2019 35615 Pre PFT Completed Medical Devices Description No Information Available Encounters Type Date Location Provider Dx Diagnosis Office Visit 10/31/[address] [place] [address]y Oropeza J45.20 Mild intermittent 1:40p HAZEL-Janine asthma, uncomplicated J30.89 Other allergic rhinitis J30.2 Other seasonal allergic rhinitis J30.1 Allergic rhinitis due to pollen Assessments Date Code Description Provider 10/31/2019 J45.20 Mild intermittent asthma, uncomplicated CORRINE Arias 10/31/2019 J30.89 Other allergic rhinitis CORRINE Arias 10/31/2019 J30.2 Other seasonal allergic rhinitis CORRINE Arias 10/31/2019 J30.1 Allergic rhinitis due to pollen CORRINE Arias Plan of Treatment Future Appointment(s):11/14/2019 9:40 am - CORRINE Arias at [id number] - [place] AriasCJ45.20 Mild intermittent asthma, ofgqkinesljxnM28.89 Other allergic amcvgzvoB18.2 Other seasonal allergic knapeymyS25.1 Allergic rhinitis due to pollenNew Medication:Cetirizine HCL 10 mgFollow up:2 weeks with pre and ENORecommendations:Continue all medications as prescribed.Refrain from wearing perfumes/scented colognes while visitingour office. Start the Symbicort 2 puffs twice a day (Maintenance use every day) Cetirizine 1 daily Qnasl 1-2 sprays each nostril once [...] machine to detect an asthmatic condition or otherlung problem. Results reviewed with the patient and is normal Your JENA is 33. The normal is less than 25. You have some inflammation in your lungs. Using the Symbicort will help that. Functional Status Description No Information Available Mental Status Description No Information Available Referrals Description No Information Available
--- OUTSIDE RECORDS SUMMARY | 2019-11-29 14:12 | XMS REPORT | Continuity of Care Document ---
:1988 External Reference #:[id number] Author Name Allergy Injection (transmitted by agent of provider Gertrudis Villalta) Address [address] [place] [address] Care Team Providers Name Role Phone Libby Navarrete M.D. - Family Care Team Information School Age Program Associate Medicine Glenn Mccartney MD Care Team Information School Age Program Associate [phone] Problems Active Problems Provider Date Allergic rhinitis [...] Laney Oropeza, 10/31/2019 HFA 4hours as needed SALES SYSTEMS ENGINEER-C 108(90Base) for cough, mcg/Act Aerosol shortness of breath, chest tightness or wheezing. Symbicort 2 inhalations am&pm 30.6gm Laney Oropeza, 10/31/2019 SALES SYSTEMS ENGINEER-C 160-4.5mcg/Act Aerosol Cetirizine HCL 1 by mouth every 30tabs J45.20 Laney Oropeza, 10/31/2019 10mg day SALES SYSTEMS ENGINEER-C Tablets Qnasl 1-2 sprays in each 26.1gm Laney Oropeza, 06/06/2017 80mcg/Act nostril daily SALES SYSTEMS ENGINEER-C Aerosol Epipen 2-Pacheco use as directed 12pak Laneynegrito Marinoramonita, 09/18/2015 SALES SYSTEMS ENGINEER-C 0.3mg/0.3ML Solution Auto-Inject Acyclovir one tab daily Unknown 500mg Tablets Benzonatate Unknown 200mg Capsules Medications Administered in Office Medication SIG Qnty Indications Ordering Provider Date Injection Allergy Injection 11/26/2019 Injection Injection Allergy Injection 11/19/2019 Injection Injection Allergy [...] Allergy Injection 02/14/2017 Injection Celestone/Cortisone Laney Oropeza, SALES SYSTEMS ENGINEER-C 01/05/2017 [id number] 1 cc Injection Immunizations CPT Code Status Date Vaccine Lot # [id number] Given Unknown Influenza Vaccine Vital Signs Date [...] Information Available Procedures Date Code Description Status 11/26/2019 06234 Injection Completed 11/19/2019 04786 Injection Completed 11/14/2019 38526 Injection Completed 11/14/2019 75167 Pre PFT Completed 11/13/2019 42262 Extract 1-10 Completed 10/31/2019 25276 Nitric Oxide Gas Determination Completed 10/31/2019 59780 Ippb Completed 10/31/2019 77131 Pre PFT Completed Medical Devices Description No Information Available Encounters Type Date Location Provider Dx Diagnosis Office Visit 11/14/2019 Reynodl Oropeza J30.2 Other seasonal 9:40a SALES SYSTEMS ENGINEER-C allergic rhinitis J30.1 Allergic rhinitis due to pollen J30.89 Other allergic rhinitis J30.81 Allergic rhinitis due to animal (cat) (dog) hair and dander J45.20 Mild intermittent asthma, uncomplicated Office Visit 10/31/2019 1:40p Reynold Oropeza J45.20 Mild intermittent SALES SYSTEMS ENGINEER-C asthma, uncomplicated J30.89 Other allergic rhinitis J30.2 Other seasonal allergic rhinitis J30.1 Allergic rhinitis due to pollen Assessments Date Code Description Provider 11/26/2019 J30.1 Allergic rhinitis due to pollen Zay Mendez M.D. 11/26/2019 J30.1 Allergic rhinitis due to pollen Allergy Injection 11/26/2019 J30.2 Other seasonal allergic rhinitis Zay Mendez M.D. 11/26/2019 J30.2 Other seasonal allergic rhinitis Allergy Injection 11/26/2019 J30.81 Allergic rhinitis due to animal (cat) Zay Mendez M.D. (dog) hair and dander 11/26/2019 J30.81 Allergic rhinitis due to animal (cat) Allergy Injection (dog) hair and dander 11/26/2019 J30.89 Other allergic rhinitis Zay Mendez M.D. 11/26/2019 J30.89 Other allergic rhinitis Allergy Injection 11/19/2019 J30.1 Allergic rhinitis due to pollen [...] 11/14/2019 J30.2 Other seasonal allergic rhinitis Laney Oropeza SALES SYSTEMS ENGINEER-C 11/14/2019 J30.81 Allergic rhinitis due to animal (cat) Zay Mendez M.D. (dog) hair and dander 11/14/2019 J30.1 Allergic rhinitis due to pollen Zay Mendez M.D. 11/14/2019 J30.89 Other allergic rhinitis Zay Mendez M.D. 11/14/2019 J30.1 Allergic rhinitis due to pollen Laney Oropeza SALES SYSTEMS ENGINEER-C 11/14/2019 J30.89 Other allergic rhinitis Zay Mendez M.D. 11/14/2019 J30.89 Other allergic rhinitis Laneymallika Oropeza SALES SYSTEMS ENGINEER-C 11/14/2019 J30.81 Allergic rhinitis due to animal (cat) Zay Mendez M.D. (dog) hair and dander 11/14/2019 J30.81 Allergic rhinitis due to animal (cat) Laneyjason Oropeza, SALES SYSTEMS ENGINEER -C (dog) hair and dander 11/14/2019 J45.20 Mild intermittent asthma, uncomplicated Laney Uldrich, SALES SYSTEMS ENGINEER-C 11/14/2019 J30.1 Allergic rhinitis due to pollen [...] pollen CORRINE Arias Plan of Treatment Future Appointment(s):12/03/2019 8:30 am - Allergy Injection at [id number] 5:20 pm - Mitchell Duarte M.D. at [place] Functional Status Description No Information Available Mental Status Description No Information Available Referrals Description No Information Available
--- OUTSIDE RECORDS SUMMARY | 2019-11-29 14:12 | XMS REPORT | Continuity of Care Document ---
:1990 External Reference #:[id number] Author Name CORRINE Arias (transmitted by agent of provider Janine Epperson ) Address [address] [place] [address] Care Team Providers Name Role Phone Libby Navarrete M.D. - Family Care Team Information Data Center Architect Medicine Glenn Mccartney MD Care Team Information Data Center Architect [phone] Problems Active Problems Provider Date Allergic rhinitis [...] Laney Oropeza, 10/31/2019 HFA 4hours as needed CLIENT SERVICE MANAGER-C 108(90Base) for cough, mcg/Act Aerosol shortness of breath, chest tightness or wheezing. Symbicort 2 inhalations am&pm 30.6gm Laney Oropeza, 10/31/2019 CLIENT SERVICE MANAGER-C 160-4.5mcg/Act Aerosol Cetirizine HCL 1 by mouth every 30tabs J45.20 Laney Oropeza, 10/31/2019 10mg day CLIENT SERVICE MANAGER-C Tablets Qnasl 1-2 sprays in each 26.1gm Laney Oropeza, 06/06/2017 80mcg/Act nostril daily CLIENT SERVICE MANAGER-C Aerosol Epipen 2-Pacheco use as directed 12pak Laney Oropeza, 09/18/2015 CLIENT SERVICE MANAGER-C 0.3mg/0.3ML Solution Auto-Inject Acyclovir one tab daily [...] Allergy Injection 02/14/2017 Injection Celestone/Cortisone Laney Oropeza, CLIENT SERVICE MANAGER-C 01/05/2017 [id number] 1 cc Injection Immunizations CPT Code Status Date Vaccine Lot # [id number] Given Unknown Influenza Vaccine Vital Signs Date [...] Available Procedures Date Code Description Status 11/14/2019 70070 Injection Completed 11/14/2019 38895 Pre PFT Completed 11/13/2019 77068 Extract 1-10 Completed 10/31/2019 77190 Nitric Oxide Gas Determination Completed 10/31/2019 58229 Ippb Completed 10/31/2019 98839 Pre PFT Completed Medical Devices Description No Information Available Encounters Type Date Location Provider Dx Diagnosis Office Visit 11/14/2019 Reynold Oropeza J30.2 Other seasonal 9:40a CLIENT SERVICE MANAGER-C allergic rhinitis J30.1 Allergic rhinitis due to pollen J30.89 Other allergic rhinitis J30.81 Allergic rhinitis due to animal (cat) (dog) hair and dander J45.20 Mild intermittent asthma, uncomplicated Office Visit 10/31/2019 1:40p Reynold Oropeza J45.20 Mild intermittent CLIENT SERVICE MANAGER-C asthma, uncomplicated J30.89 Other allergic rhinitis J30.2 Other seasonal allergic rhinitis J30.1 Allergic rhinitis due to pollen Assessments Date Code Description Provider 11/14/2019 J30.2 Other seasonal allergic rhinitis Zay Mendez M.D. 11/14/2019 J30.2 Other seasonal allergic rhinitis Laney Uldrich, CLIENT SERVICE MANAGER-C 11/14/2019 J30.1 Allergic rhinitis due to pollen Zay Mendez M.D. 11/14/2019 J30.1 Allergic rhinitis due to pollen Laney Uldrich, CLIENT SERVICE MANAGER-C 11/14/2019 J30.89 Other allergic rhinitis Zay Mendez M.D. 11/14/2019 J30.89 Other allergic rhinitis Laney Uldrich, CLIENT SERVICE MANAGER-C 11/14/2019 J30.81 Allergic rhinitis due to animal (cat) Zay Mendez M.D. (dog) hair and dander 11/14/2019 J30.81 Allergic rhinitis due to animal (cat) Laney Uldrich, CLIENT SERVICE MANAGER -C (dog) hair and dander 11/14/2019 J45.20 Mild intermittent asthma, uncomplicated Laney Uldrramonita, CLIENT SERVICE MANAGER-C 11/14/2019 J30.1 Allergic rhinitis due to pollen [...] J45.20 Mild intermittent asthma, uncomplicated Laney Sandip, HAZEL-C 10/31/2019 J30.89 Other allergic rhinitis Zay Mendez M.D. 10/31/2019 J30.89 Other allergic rhinitis HAZEL Arias-Janine 10/31/2019 J30.2 Other seasonal allergic rhinitis Zay Mendez M.D. 10/31/2019 J30.2 Other seasonal allergic rhinitis LaneyHAZEL Nam-Janine 10/31/2019 J30.1 Allergic rhinitis due to pollen Zay Mendez M.D. 10/31/2019 J30.1 Allergic rhinitis due to pollen HAZEL Arias-C Plan of Treatment Future Appointment(s):11/19/2019 5:30 pm - Allergy Injection at [id number] 5:20 pm - Mitchell Duarte M.D. at [id number]/14/2019 - Laney Ulramonita, HAZEL- CJ30.2 Other seasonal allergic ycztmzmqZ28.1 Allergic rhinitis due to nrrmmxJ87.89 Other allergic spvisiwmB13.81 Allergic rhinitis due to animal (cat ) (dog) hair and uytuzuC42.20 Mild intermittent asthma, uncomplicatedRecommendations:Continue all medications as [...]
--- OUTSIDE RECORDS SUMMARY | 2019-11-29 14:12 | XMS REPORT | Continuity of Care Document ---
:1990 External Reference #:[id number] Author Name [facility] (transmitted by agent of provider Janine Epperson) Address [address] [place] [address] Care Team Providers Name Role Phone Libby Navarrete M.D. - Family Care Team Information Packaging Sales Representative Medicine Glenn Mccartney MD Care Team Information Packaging Sales Representative [phone] Problems Active Problems Provider Date Allergic rhinitis [...] Laney Oropeza, 10/31/2019 HFA 4hours as needed CHAIR MAKER-C 108(90Base) for cough, mcg/Act Aerosol shortness of breath, chest tightness or wheezing. Symbicort 2 inhalations am&pm 30.6gm Laney Oropeza, 10/31/2019 CHAIR MAKER-C 160-4.5mcg/Act Aerosol Cetirizine HCL 1 by mouth every 30tabs J45.20 Laney Oropeza, 10/31/2019 10mg day CHAIR MAKER-C Tablets Qnasl 1-2 sprays in each 26.1gm Laney Oropeza, 06/06/2017 80mcg/Act nostril daily CHAIR MAKER-C Aerosol Epipen 2-Pacheco use as directed 12pak Laney Oropeza, 09/18/2015 CHAIR MAKER-C 0.3mg/0.3ML Solution Auto-Inject Acyclovir one tab daily [...] Allergy Injection 02/14/2017 Injection Celestone/Cortisone Laney Oropeza, CHAIR MAKER-C 01/05/2017 [id number] 1 cc Injection Immunizations CPT Code Status Date Vaccine Lot # [id number] Given Unknown Influenza Vaccine Vital Signs Date [...] Information Available Procedures Date Code Description Status 11/13/2019 83216 Extract 1-10 Completed 10/31/2019 90553 Nitric Oxide Gas Determination Completed 10/31/2019 48828 Ippb Completed 10/31/2019 52449 Pre PFT Completed Medical Devices Description No Information Available Encounters Type Date Location Provider Dx Diagnosis Office Visit 10/31/2019 [place] Laney Oropeza, J45.20 Mild intermittent 1:40p CHAIR MAKER-C asthma, uncomplicated J30.89 Other allergic rhinitis J30.2 Other seasonal allergic rhinitis J30.1 Allergic rhinitis due to pollen Assessments Date Code Description Provider 11/13/2019 J30.2 Other seasonal allergic rhinitis Zay [...] 10/31/2019 J45.20 Mild intermittent asthma, uncomplicated HAZEL Arias-C 10/31/2019 J30.89 Other allergic rhinitis Zay Mendez M.D. 10/31/2019 J30.89 Other allergic rhinitis CORRINE Arias 10/31/2019 J30.2 Other seasonal allergic rhinitis Zay Mendez M.D. 10/31/2019 J30.2 Other seasonal allergic rhinitis CORRINE Arias 10/31/2019 J30.1 Allergic rhinitis due to pollen Zay Mendez M.D. 10/31/2019 J30.1 Allergic rhinitis due to pollen CORRINE Arias Plan of Treatment Future Appointment(s):11/14/2019 9:40 am - CORRINE Arias at [place] Functional Status Description No Information Available Mental Status Description No Information Available Referrals Description No Information Available
[2019-11-29 14:26] VITALS: BP 132/79
--- NOTE | 2019-11-29 14:43 | UC ---
Back Pain HPI - HPI Summary HPI Summary: 29 yo female has the onset today of back pain after lifting laundry. A few hours after her initial injury, she slipped and fell on stairs striking her lower back on a step. She states that she has severe pain. She has not taken anything for pain. She has had to go to physical therapy for back injury in the past. She has no radiation of her pain down her legs. She denies any bowel or bladder dysfunction. - History of Current Complaint Chief Complaint: UCBackPain Stated Complaint: BACK INJURY Time Seen by Provider: 11/29/19 14:38 Hx Obtained From: Patient Hx Last Menstrual Period: 7 days ago Onset/Duration: Sudden Onset, Lasting Hours Timing: Constant Severity Initially: Moderate Severity Currently: Severe Pain Intensity: 10 Pain Scale Used: 0-10 Numeric Back Pain: Is Discrete @ Character: Sharp Aggravating Factor(s): Movement, Bending, Walking Alleviating Factor(s): Position Associated Signs And Symptoms: Positive: Negative Related History: Similar Episode Dx As - lumbar strain Full Body (No Head): 1 - point tenderness here - Allergies/Home Medications Allergies/Adverse Reactions: Allergies Allergy/AdvReac Type Severity Reaction Status Date / Time iodine Allergy Unknown Verified 11/14/17 16:00 Reaction Details Penicillins Allergy Unknown Verified 11/14/17 16:00 Reaction Details shellfish derived Allergy Hives/Diff. Verified 11/14/17 16:00 Breathing/I tching Home Medications: Home Medications Acyclovir 200 mg PO DAILY 11/14/17 [History] Benzonatate CAP* [Tessalon 100 MG CAP*] 100 mg PO TID 11/29/19 [History Confirmed 11/29/19] Cetirizine HCl [Zyrtec] 10 mg PO DAILY 11/29/19 [History Confirmed 11/29/19] Cyclobenzaprine (NF) [Cyclobenzaprine 5 MG (NF)] 5 mg PO TID PRN #21 tab [Rx] Ibuprofen TAB* [Motrin TAB*] 600 mg PO QID PRN #40 tab 11/29/19 [Rx] PMH/Surg Hx/FS Hx/Imm Hx Previously Healthy: Yes - Surgical History Surgical History: None - Family History Known Family History: Positive: Hypertension, Diabetes - grandmother, Other - Cancer (gradmother) - Social History Alcohol Use: Occasionally Substance Use Type: None Smoking Status (MU): Never Smoked Tobacco Have You Smoked in the Last Year: No - Immunization History Most Recent Tetanus Shot: unknown Review of Systems All Other Systems Reviewed And Are Negative: Yes Constitutional: Positive: Negative Skin: Positive: Negative Eyes: Positive: Negative ENT: Positive: Negative Respiratory: Positive: Negative Cardiovascular: Positive: Negative Gastrointestinal: Positive: Negative Genitourinary: Positive: Negative Motor: Positive: Negative Neurovascular: Positive: Negative Musculoskeletal: Positive: Negative Neurological/Mental Status: Positive: Negative Psychological: Positive: Negative Physical Exam Triage Information Reviewed: Yes Appearance: Well-Appearing, No Pain Distress, Well-Nourished Vital Signs: Initial Vital Signs Temp 99.3 F 11/29/19 14:21 Pulse 78 11/29/19 14:21 Resp 18 11/29/19 14:21 BP 132/79 11/29/19 14:21 Pulse Ox 98 11/29/19 14:21 Vital Signs Reviewed: Yes Eyes: Positive: Conjunctiva Clear ENT: Positive: Hearing grossly normal, Uvula midline. Negative: Nasal congestion, Nasal drainage, Tonsillar swelling, Tonsillar exudate, Hoarse voice Dental Exam: Normal Neck: Positive: Supple, Nontender Respiratory: Positive: Lungs clear, Normal breath sounds, No respiratory distress, No accessory muscle use Cardiovascular: Positive: RRR, No Murmur Musculoskeletal: Positive: ROM Intact, No Edema Neurological: Positive: Alert Psychological Exam: Normal Skin Exam: Normal - Additional Comments patient most comfortable leaning over the exam table pain with full extension tender over L4-5 non focal neuro exam (-) SLR Back Pain Course/Dx - Differential Dx/Diagnosis Provider Diagnosis: Acute lumbar myofascial strain, Back contusion, Elevated BP without diagnosis of hypertension Discharge ED - Sign-Out/Discharge Documenting (check all that apply): Patient Departure All imaging exams completed and their final reports reviewed: Yes - Discharge Plan Condition: Stable Disposition: HOME Prescriptions: Cyclobenzaprine (NF) [Cyclobenzaprine 5 MG (NF)] 5 mg PO TID PRN #21 tab PRN Reason: Spasms - Back Ibuprofen TAB* [Motrin TAB*] 600 mg PO QID PRN #40 tab PRN Reason: Pain Patient Education Materials: Low Back Strain (ED) Referrals: Trish Tomlinson MD [Primary Care Provider] - 1 Week (if not better) - Billing Disposition and Condition Condition: STABLE Disposition: Home
[2019-11-29] MEDS ORDERED: Ketorolac INJ* 30 MG/ML 1 ML VIAL IM ONE (14:52)
== END 2019-11-29 15:50 | disposition home or self-care (01) ==
LOC: UCEAST 14:00
DX: S39.012A Strain of muscle, fascia and tendon of lower back, initial encounter (principal); X50.0XXA Overexertion from strenuous movement or load, initial encounter; S30.0XXA Contusion of lower back and pelvis, initial encounter; W10.9XXA Fall (on) (from) unspecified stairs and steps, initial encounter; Y92.9 Unspecified place or not applicable; R03.0 Elevated blood-pressure reading, without diagnosis of hypertension; Z88.0 Allergy status to penicillin; Z91.013 Allergy to seafood; Z91.09 Other allergy status, other than to drugs and biological substances
CPT/HCPCS: 72100; 96372; 99212; G0463; J1885